=== PATIENT | female | born 2000 ===

== ENCOUNTER 2025-06-20 07:35 | Outpatient (CLI) | payer OTHER | END 2025-06-20 07:37 | disposition home or self-care (01) | LOC: RAD 07:35 | PROVIDERS: ATTEND Specialist/Technologist, Other Nephrology | DX: M13.872 Other specified arthritis, left ankle and foot (principal); M06.072 Rheumatoid arthritis without rheumatoid factor, left ankle and foot; S96.902A Unspecified injury of unspecified muscle and tendon at ankle and foot level, left foot, initial encounter ==